=== PATIENT | male | born 1980 | race Caucasian/White ===

== ENCOUNTER 2023-02-11 13:55 | Outpatient (CLI) | payer OTHER, SELFPAY ==
--- NOTE | ~2023-02-11 | CT_ITS ---
EXAMINATION: CT abdomen w con DATE: 02/11/2023 14:33 INDICATION: R10.12 - Left upper quadrant pain TECHNIQUE: Computed tomography (CT) of the abdomen and pelvis was performed with 100 mL Omnipaque 350 intravenous contrast. Automated exposure control and iterative reconstruction technique were employe d. The dose-length product was 563.39 mGy-cm. COMPARISON: 09/06/2013. FINDINGS: Lower thorax: Minimal dependent atelectasis Liver: Irregular subcentimeter hypodensity in the right lobe, too small to characterize but likely cy st or hemangioma. Biliary/Gallbladder: Gallbladder is normal. No bile duct dilation. Pancreas: No mass or duct dilation. Spleen: Normal. Adrenals:No mass. Kidneys: Subcentimeter left midpole hypodensity, too small to characterize but most likely represents a cyst. Punctate nonobstructing left upper pole calcification. No suspicious mass, obstructing stone , or hydronephrosis. GI tract: No small or large bowel dilation. Normal appendix. Diverticulosis without diverticulitis. Mesentery/Peritoneum: No ascites, mass, or free air. Retroperitoneum: No mass. Soft Tissues: Soft tissues and body wall unremarkable. Bones: No acute osseous finding. IMPRESSION: No acute abdominal process detected. Reviewed, dictated and finalized at location K.
[2023-02-11 15:22] LABS: Basophils Percent Auto 0.5 % (0.2-1.2); Eosinophils Absolute Auto 0.1 K/mm3 (0-0.3); Eosinophils Percent Auto 1.8 % (0-4.4); Hematocrit 45.7 % (42.0-52.0); Hemoglobin 15.2 g/dL (14.0-18.0); Immature Granulocyte Absolute 0.01 K/mm3 (0.00-0.031); Immature Granulocyte Percent A 0.1 % (0-0.5); Lymphocytes Absolute Auto 3.02 K/mm3 (0.9-3.2); Lymphocytes Percent Auto 38.6 % (18.3-44.2); Mean Corpuscular HGB Conc 33.3 g/dl (32-36); Mean Corpuscular Hemoglobin 30.3 pg (26-34); Mean Corpuscular Volume 91.2 fl (80-100); Mean Platelet Volume 9.1 fl (7.4-10.4); Monocytes Absolute Auto 0.7 K/mm3 (0.1-0.6); Monocytes Percent Auto 8.6 % (2.6-8.5); Neutrophils Absolute Auto 3.9 K/mm3 (1.3-6.7); Neutrophils Percent Auto 50.4 % (45.5-73.1); Platelet Count Result 313 k/mm3 (150-375); Red Blood Count 5.01 M/mm3 (4.6-6.20); Red Cell Distribution Width 11.9 % (11.5-14.5); White Blood Count 7.8 K/mm3 (4.5-10.0)
[2023-02-11 15:28] LABS: Alanine Aminotransferase 31 U/L (6-50); Albumin Level 4.4 g/dL (3.5-5.1); Alkaline Phosphatase 72 U/L (38-126); Amylase 116 U/L (30-110); Anion Gap 7 mmol/L (8-16); Aspartate Amino Transferase 28 U/L (17-59); Bilirubin,Total 0.8 mg/dL (0.2-1.3); Blood Urea Nitrogen 12 mg/dL (9-20); Calcium 8.9 mg/dL (8.4-10.2); Carbon Dioxide 28 mmol/L (22-30); Chloride 101 mmol/L (98-107); Estimated Glomerular Filt Rate > 60; Glucose 90 mg/dL (65-110); Lipase 1451 U/L (23-300); Potassium 3.7 mmol/L (3.4-5.0); Sodium 136 mmol/L (137-145)
== END 2023-02-11 13:56 | disposition home or self-care (01) ==
PROVIDERS: PCP Family Medicine; Visit Provider Physician Assistant Medical
DX: K44.9 Diaphragmatic hernia without obstruction or gangrene (principal); R10.12 Left upper quadrant pain
CPT/HCPCS: 36415; 74160; 80053; 82150; 83690; 85025; Q9967

== ENCOUNTER 2023-04-10 12:05 | Outpatient (CLI) | payer OTHER, SELFPAY ==
[2023-04-10 13:30] LABS: Alanine Aminotransferase 33 U/L (6-50); Albumin Level 4.8 g/dL (3.5-5.1); Alkaline Phosphatase 66 U/L (38-126); Amylase 69 U/L (30-110); Anion Gap 9 mmol/L (8-16); Aspartate Amino Transferase 28 U/L (17-59); Bilirubin,Total 0.8 mg/dL (0.2-1.3); Blood Urea Nitrogen 12 mg/dL (9-20); Calcium 9.6 mg/dL (8.4-10.2); Carbon Dioxide 30 mmol/L (22-30); Chloride 102 mmol/L (98-107); Estimated Glomerular Filt Rate > 60; Glucose 88 mg/dL (65-110); Lipase 476 U/L (23-300); Potassium 3.9 mmol/L (3.4-5.0); Sodium 141 mmol/L (137-145); Triglycerides 290 mg/dL (<150)
[2023-04-13 14:57] LABS: Immunoglobulin G, Serum 960 mg/dL (600-1640); Immunoglobulin G1 589 mg/dL (382-929); Immunoglobulin G2 293 mg/dL (241-700); Immunoglobulin G3 61 mg/dL (22-178); Immunoglobulin G4 18.6 mg/dL (4.0-86.0)
== END 2023-04-10 12:06 | disposition home or self-care (01) ==
LOC: ANHLAB 12:07
PROVIDERS: PCP Family Medicine; Visit Provider Internal Medicine Gastroenterology
DX: K85.90 Acute pancreatitis without necrosis or infection, unspecified (principal)
CPT/HCPCS: 36415; 80053; 82150; 82784; 82787; 83690; 84478

== ENCOUNTER 2023-04-17 07:43 | Day surgery (SDC) | payer OTHER, SELFPAY ==
[2023-04-11 09:06] VITALS: BMI 35.1
[2023-04-11 11:31] VITALS: BMI 33.5
[2023-04-17 08:05] VITALS: BMI 34.9
[2023-04-17] MEDS: LACTATED RINGERS 1,000 ML 150 ML IV CONT (09:13)
--- NOTE | 2023-04-17 09:38 | WPDHPUPDATE1 ---
History and Physical Update Update Date/Time: 04/17/23 09:38 History and Physical has been reviewed, including an updated exam of the patient. There are NO changes in the patient's condition. Risks, benefits, and alternatives have been discussed and questions answered. Patient agrees to proceed with procedure.
[2023-04-17 09:55] VITALS: BP 109/65; PULSE 75; RESP 14; O2SAT 99
[2023-04-17 10:05] VITALS: BP 113/77; PULSE 69; RESP 16; O2SAT 98
[2023-04-17 10:15] VITALS: BP 124/87; PULSE 69; RESP 16; O2SAT 100
--- NOTE | 2023-04-17 10:15 | WPDANESPN ---
Anes - Prog Note Post-Op Date/Time: 04/17/23 10:15 Cardiovascular status: normal Respiratory status: normal Airway patency: baseline Mental status: baseline Post-Op hydration status: normal Pain Score (VAS): 0 Patient Feedback: Patient satisfied with anesthetic care.
--- NOTE | 2023-04-17 10:39 | WPDANESPN ---
Anes - Prog Note Post-Op Date/Time: 04/17/23 10:39 Cardiovascular status: normal Respiratory status: normal Airway patency: baseline Mental status: baseline Post-Op hydration status: normal Vital Signs: Last Vital Signs Pulse 69 04/17/23 10:15 Resp 16 04/17/23 10:15 BP 124/87 04/17/23 10:15 Pulse Ox 100 04/17/23 10:15 O2 Del Method Room Air 04/17/23 10:15 Pain Score (VAS): 0 Patient Feedback: Patient satisfied with anesthetic care.
== END 2023-04-17 10:40 | disposition home or self-care (01) ==
PROVIDERS: PCP Family Medicine; Visit Provider Internal Medicine Gastroenterology
PROC: 0DJ08ZZ Inspection of Upper Intestinal Tract, Via Natural or Artificial Opening Endoscopic (ICD-10-PCS; CPT 43235; principal; 2023-04-17 09:30)
DX: K44.9 Diaphragmatic hernia without obstruction or gangrene (principal); K21.9 Gastro-esophageal reflux disease without esophagitis
CPT/HCPCS: 43239

== ENCOUNTER 2023-04-17 08:41 | Outpatient (NON) | payer OTHER, SELFPAY | END 2023-04-17 08:42 | disposition home or self-care (01) | PROVIDERS: PCP Family Medicine; Visit Provider Internal Medicine Gastroenterology | DX: K44.9 Diaphragmatic hernia without obstruction or gangrene (principal) | CPT/HCPCS: 88305 ==

== ENCOUNTER 2023-04-19 07:18 | Outpatient (CLI) | payer OTHER, SELFPAY ==
--- NOTE | ~2023-04-19 | MR_ITS ---
EXAMINATION: MR abdomen wo/w con DATE: 04/19/2023 08:42 INDICATION: Acute pancreatitis without necrosis. Upper abdominal pain. TECHNIQUE: Magnetic resonance imaging (MRI) of the abdomen was performed without and with 18 mL Multi Marcello intravenous contrast. COMPARISON: CT abdomen 02/11/2023 FINDINGS: There is diffuse hepatic steatosis. There are cysts in the liver measuring up to 8 mm. The common alda t is normal and measures 3 mm. No choledocholithiasis. The gallbladder, spleen, pancreas, adrenal gla nds, and kidneys are normal. There are no dilated loops of bowel. There is diverticulosis of the colo n without evidence of diverticulitis. There are no pathologically enlarged lymph nodes. There is no f ree intraperitoneal fluid. IMPRESSION: 1. Normal pancreas. 2. Diffuse hepatic steatosis. Reviewed, dictated and finalized at location A. [employer]
== END 2023-04-19 07:19 | disposition home or self-care (01) ==
PROVIDERS: PCP Family Medicine; Visit Provider Internal Medicine Gastroenterology
DX: K85.90 Acute pancreatitis without necrosis or infection, unspecified (principal)
CPT/HCPCS: 74183; A9577